=== PATIENT | female | born 1965 | race African-American/Black ===

== ENCOUNTER 2016-11-29 20:12 | Emergency (ER) | payer MEDICAID, OTHER ==
[~2016-11-29] VITALS: Ht 167.6 cm; Wt 82.0 kg
[~2016-11-29 20:12] MED LIST: HYDR-3927 PO; IBUP-1008 PO; LORA-250 PO; LORA1TAB PO; PENT400T29 PO; VIC PO
[2016-11-29] MEDS ORDERED: NITROGLYCERIN OINT 1GM/INCH UDPKT TD STA (22:16)
[2016-11-29] MEDS ORDERED: MORPHINE SULFATE 4 MG/ML CPJ (NOT FOR IM USE) IV STA (22:16)
[2016-11-29] MEDS ORDERED: ASPIRIN 325MG EC TABLET PO ONE (22:30)
[2016-11-29 22:49] LABS: BASOPHILS % 0.8 % (0.0-2.0); EOSINOPHILS % 2.1 % (0.0-5.0); HEMATOCRIT. 38.6 % (36.0-48.0); LYMPHOCYTES % 20.2 % (20.0-50.0); MEAN CORPUSCULAR HEMOGLOBIN 32.1 pg (28.0-32.0); MEAN CORPUSCULAR VOLUME 95.2 fL (81.0-99.0); MEAN PLATELET VOLUME 8.7 fl (7.4-10.4); MONOCYTES % 8.7 % (2.0-8.0); NEUTROPHILS % 68.2 % (40.0-76.0); PLATELET 256 x1000/uL (130-400); RED BLOOD CELL COUNT 4.05 mill/uL (4.2-5.4); RED CELL DISTRIBUTION WIDTH 13.1 % (11.6-14.6)
[2016-11-29 22:52] LABS: CHLORIDE 109 mEq/L (98-107)
[2016-11-29 23:01] LABS: CARBON DIOXIDE 27 mEq/L (21-32); TROPONIN I < 0.02 ng/mL (0.00-0.04)
[2016-11-30] MEDS ORDERED: ACETAMINOPHEN 325MG TABLET PO PRN (01:45)
[2016-11-30] MEDS ORDERED: ENOXAPARIN 40MG/0.4ML SYR SUBCUT SCH (01:45)
[2016-11-30] MEDS ORDERED: ONDANSETRON HCL 4MG/2ML VIAL IV PRN (01:45)
[2016-11-30] MEDS ORDERED: CLONIDINE 0.1MG TABLET PO PRN (01:45)
[2016-11-30] MEDS ORDERED: MORPHINE SULFATE 4 MG/ML CPJ (NOT FOR IM USE) IV PRN (02:15)
[2016-11-30 02:18] LABS: BASOPHILS % 0.6 % (0.0-2.0); EOSINOPHILS % 2.4 % (0.0-5.0); HEMATOCRIT. 37.1 % (36.0-48.0); HEMOGLOBIN. 12.5 g/dL (12.0-16.0); LYMPHOCYTES % 20.4 % (20.0-50.0); MEAN CORPUSCULAR VOLUME 94.7 fL (81.0-99.0); MEAN PLATELET VOLUME 8.7 fl (7.4-10.4); MONOCYTES % 9.3 % (2.0-8.0); NEUTROPHILS % 67.3 % (40.0-76.0); PLATELET 240 x1000/uL (130-400); RED BLOOD CELL COUNT 3.92 mill/uL (4.2-5.4)
[2016-11-30 02:22] LABS: CARBON DIOXIDE 26 mEq/L (21-32); CHLORIDE 107 mEq/L (98-107); CREATINE KINASE 66 IU/L (26-192); TROPONIN I < 0.02 ng/mL (0.00-0.04)
[2016-11-30 02:23] LABS: CREATINE KINASE MB FRACTION 1.3 ng/mL (0.5-3.6)
[2016-11-30 09:35] VITALS: BP 117/72
== END 2016-11-30 10:33 | disposition left against medical advice (07) ==
LOC: ER 21:22 → SUPCPDRO 11-30 01:38 → ENRESERV 11-30 10:04 → CANRESERV 11-30 10:04 → ER 11-30 10:33 → CANBEDREQ 11-30 11:02
DX: R07.9 Chest pain, unspecified (principal); E78.00 Pure hypercholesterolemia, unspecified; Z88.6 Allergy status to analgesic agent; Z88.0 Allergy status to penicillin; Z88.8 Allergy status to other drugs, medicaments and biological substances; Z86.73 Personal history of transient ischemic attack (TIA), and cerebral infarction without residual deficits
CPT/HCPCS: 36415; 71010; 73562; 73590; 80053; 82550; 82553; 83690; 83880; 84484; 85025; 93005; 96374; 99285; J2270; Z7610

== ENCOUNTER 2018-07-19 21:59 | Emergency (ER) | payer MEDICAID, OTHER ==
[~2018-07-19] VITALS: Ht 165.1 cm; Wt 68.0 kg
[2018-07-20] MEDS ORDERED: HYDROCODONE/ACETAMINOPHEN 10/325MG TABLET PO ONE (03:30)
[2018-07-20 03:54] LABS: CHLORIDE 105 mEq/L (98-107)
[2018-07-20 04:06] LABS: BASOPHILS % 0.5 % (0.0-2.0); EOSINOPHILS % 0.8 % (0.0-5.0); HEMATOCRIT. 39.2 % (36.0-48.0); HEMOGLOBIN. 13.3 g/dL (12.0-16.0); LYMPHOCYTES % 21.7 % (20.0-50.0); MEAN CORPUSCULAR HEMOGLOBIN 32.6 pg (28.0-32.0); MEAN CORPUSCULAR VOLUME 96.2 fL (81.0-99.0); MEAN PLATELET VOLUME 8.9 fl (7.4-10.4); MONOCYTES % 7.3 % (2.0-8.0); NEUTROPHILS % 69.7 % (40.0-76.0); PLATELET 227 x1000/uL (130-400); RED BLOOD CELL COUNT 4.07 mill/uL (4.2-5.4); RED CELL DISTRIBUTION WIDTH 13.6 % (11.6-14.6)
[2018-07-20 06:36] VITALS: BP 121/81
== END 2018-07-20 06:36 | disposition home or self-care (01) ==
LOC: ER 21:59
DX: G89.29 Other chronic pain (principal); M79.18 Myalgia, other site; Z86.73 Personal history of transient ischemic attack (TIA), and cerebral infarction without residual deficits; Z86.711 Personal history of pulmonary embolism
CPT/HCPCS: 36415; 93005; 99284

== ENCOUNTER 2019-09-19 15:22 | Inpatient (IN) | payer OTHER, MEDICAID ==
[~2019-09-19] VITALS: Ht 167.6 cm; Wt 82.6 kg
[2019-09-19] MEDS ORDERED: MORPHINE SULFATE 4 MG/ML CPJ (NOT FOR IM USE) IV STA (15:51)
[2019-09-19] MEDS ORDERED: ONDANSETRON HCL 4MG/2ML INJ IV STA (15:51)
[2019-09-19] MEDS ORDERED: SODIUM CHLORIDE 0.9% 1,000 ML IV ONE (15:51)
[2019-09-19 16:14] LABS: BASOPHILS % 0.4 % (0.0-2.0); EOSINOPHILS % 0.8 % (0.0-5.0); HEMATOCRIT. 41.7 % (36.0-48.0); HEMOGLOBIN. 14.3 g/dL (12.0-16.0); LYMPHOCYTES % 17.3 % (20.0-50.0); MEAN CORPUSCULAR VOLUME 96.2 fL (81.0-99.0); MEAN PLATELET VOLUME 8.7 fl (7.4-10.4); MONOCYTES % 8.3 % (2.0-8.0); NEUTROPHILS % 73.2 % (40.0-76.0); PLATELET 235 x1000/uL (130-400); RED BLOOD CELL COUNT 4.33 mill/uL (4.2-5.4)
[2019-09-19 16:16] LABS: CHLORIDE 107 mEq/L (98-107)
[2019-09-19 16:17] LABS: PROTHROMBIN TIME 10.7 sec (9.6-11.0)
[2019-09-19 16:20] LABS: ETHANOL BLOOD < 10 mg/dL
[2019-09-19] MEDS ORDERED: ACETAMINOPHEN 325MG TABLET PO ONE (16:30)
[2019-09-19 21:45] VITALS: BP 138/77
[2019-09-19 21:46] VITALS: BP_SYST 138; BP_SYST 144; BP_DIAS 77; BP_DIAS 78
[2019-09-19] MEDS ORDERED: IOHEXOL-300 100 ML BOTTLE ONE (22:17)
[2019-09-19] MEDS ORDERED: HYDR200T35 PO ×2 (22:31→22:38)
[2019-09-19] MEDS ORDERED: GABA-533 PO (22:46)
[2019-09-19] MEDS ORDERED: LIP40 MT (22:46)
[2019-09-19] MEDS ORDERED: BACL-141 PO (22:46)
[2019-09-19] MEDS ORDERED: TRAZ-251 MT (22:46)
[2019-09-19] MEDS ORDERED: DICY10CA88 PO (22:46)
[2019-09-19] MEDS ORDERED: RIVA20TA MT (22:46)
[2019-09-19] MEDS ORDERED: OMEP40CA12 MT (22:46)
[2019-09-20] VITALS: BP 106/49
[2019-09-20] MEDS: MORPHINE SULFATE 2 MG/ML CPJ (NOT FOR IM USE) IV PRN ×4 (01:19→20:29)
[2019-09-20] MEDS: SODIUM CHLORIDE 0.9% 1,000 ML IV SCH ×2 (01:20→17:38)
[2019-09-20 04:00] VITALS: BP 159/58
[2019-09-20 06:10] LABS: BASOPHILS % 0.6 % (0.0-2.0); EOSINOPHILS % 1.4 % (0.0-5.0); HEMATOCRIT. 37.3 % (36.0-48.0); HEMOGLOBIN. 12.8 g/dL (12.0-16.0); LYMPHOCYTES % 26.2 % (20.0-50.0); MEAN CORPUSCULAR HEMOGLOBIN 33.2 pg (28.0-32.0); MEAN CORPUSCULAR VOLUME 96.8 fL (81.0-99.0); MEAN PLATELET VOLUME 8.8 fl (7.4-10.4); MONOCYTES % 9.3 % (2.0-8.0); NEUTROPHILS % 62.5 % (40.0-76.0); PLATELET 213 x1000/uL (130-400); RED BLOOD CELL COUNT 3.86 mill/uL (4.2-5.4); RED CELL DISTRIBUTION WIDTH 12.6 % (11.6-14.6)
[2019-09-20 06:12] LABS: CHLORIDE 108 mEq/L (98-107)
[2019-09-20 08:00] VITALS: BP 106/79
[2019-09-20 08:00] LABS: CREATINE KINASE 54 IU/L (26-192)
[2019-09-20 08:01] LABS: CREATINE KINASE MB FRACTION < 1.0 ng/mL (0.5-3.6)
[2019-09-20 12:00] VITALS: BP 129/89
[2019-09-20] MEDS ORDERED: HYDROCODONE/ACETAMINOPHEN 5/325MG TABLET PO PRN (13:30)
[2019-09-20] MEDS: RIVAROXABAN 20 MG TABLET PO SCH (14:05)
[2019-09-20] MEDS: HYDROXYCHLOROQUINE SULFATE 200MG TABLET PO SCH (14:05)
[2019-09-20] MEDS: OMEPRAZOLE 20MG CAPSULE EXTENDED RELEASE PO SCH (14:06)
[2019-09-20] MEDS: DICYCLOMINE HCL 10MG CAPSULE PO SCH (15:55)
[2019-09-20 16:00] VITALS: BP 137/80
[2019-09-20 16:35] LABS: CREATINE KINASE 68 IU/L (26-192)
[2019-09-20 16:36] LABS: CREATINE KINASE MB FRACTION < 1.0 ng/mL (0.5-3.6)
[2019-09-20] MEDS: BACLOFEN 10MG TABLET PO SCH (17:31)
[2019-09-20] MEDS: GABAPENTIN 400MG CAPSULE PO SCH (17:31)
[2019-09-20] MEDS: PENTOXIFYLLINE 400MG TABLET PO SCH (17:31)
[2019-09-20 20:00] VITALS: BP 114/64
[2019-09-20] MEDS: ATORVASTATIN CALCIUM 40MG TABLET PO SCH (20:28)
[2019-09-20] MEDS ORDERED: TRAZODONE HCL 50MG TABLET PO SCH (21:00)
[2019-09-20] MEDS: LORAZEPAM 1MG TABLET PO PRN (22:33)
[2019-09-21] VITALS (8 sets, daily range): BP systolic 98–136; BP diastolic 49–70
[2019-09-21 05:30] LABS: CHLORIDE 109 mEq/L (98-107)
[2019-09-21 05:40] LABS: CREATINE KINASE 63 IU/L (26-192); T4 FREE 1.14 ng/dL (0.76-1.46)
[2019-09-21] MEDS: OMEPRAZOLE 20MG CAPSULE EXTENDED RELEASE PO SCH (05:56)
[2019-09-21 06:49] LABS: BASOPHILS % 0.6 % (0.0-2.0); HEMATOCRIT. 39.4 % (36.0-48.0); HEMOGLOBIN. 13.4 g/dL (12.0-16.0); MEAN CORPUSCULAR HEMOGLOBIN 33.1 pg (28.0-32.0); MEAN CORPUSCULAR VOLUME 97.1 fL (81.0-99.0); MEAN PLATELET VOLUME 9.2 fl (7.4-10.4); NEUTROPHILS % 63.4 % (40.0-76.0); PLATELET 197 x1000/uL (130-400); RED BLOOD CELL COUNT 4.05 mill/uL (4.2-5.4); RED CELL DISTRIBUTION WIDTH 12.7 % (11.6-14.6)
[2019-09-21] MEDS: PENTOXIFYLLINE 400MG TABLET PO SCH ×3 (09:08→17:12)
[2019-09-21] MEDS: BACLOFEN 10MG TABLET PO SCH ×2 (09:08→17:11)
[2019-09-21] MEDS: GABAPENTIN 400MG CAPSULE PO SCH (09:08)
[2019-09-21] MEDS: RIVAROXABAN 20 MG TABLET PO SCH (09:08)
[2019-09-21] MEDS: HYDROXYCHLOROQUINE SULFATE 200MG TABLET PO SCH (09:08)
[2019-09-21] MEDS: DICYCLOMINE HCL 10MG CAPSULE PO SCH (09:08)
[2019-09-21] MEDS: SODIUM CHLORIDE 0.9% 1,000 ML IV SCH (12:36)
[2019-09-21] MEDS: MORPHINE SULFATE 2 MG/ML CPJ (NOT FOR IM USE) IV PRN ×2 (13:07→23:21)
[2019-09-21] MEDS ORDERED: CELECOXIB 200MG CAPSULE PO SCH (17:00)
[2019-09-21] MEDS: DULOXETINE HCL 60MG DR CAPSULE PO SCH (17:11)
[2019-09-21] MEDS: DOCUSATE SODIUM 250MG CAPSULE PO SCH (19:08)
[2019-09-21] MEDS ORDERED: MAGNESIUM CITRATE 300ML SOLUTION PO SCH (20:00)
[2019-09-21] MEDS: PREGABALIN 75MG CAPSULE PO SCH (20:20)
[2019-09-21] MEDS: ATORVASTATIN CALCIUM 40MG TABLET PO SCH (20:20)
[2019-09-21] MEDS ORDERED: BISACODYL 5MG TABLET PO SCH (21:00)
[2019-09-22 04:00] VITALS: BP 107/60
[2019-09-22] MEDS: SODIUM CHLORIDE 0.9% 1,000 ML IV SCH (04:24)
[2019-09-22] MEDS: CELECOXIB 200MG CAPSULE PO SCH ×2 (06:36→18:11)
[2019-09-22] MEDS: OMEPRAZOLE 20MG CAPSULE EXTENDED RELEASE PO SCH (06:36)
[2019-09-22 08:00] VITALS: BP 115/54
[2019-09-22 08:12] LABS: BASOPHILS % 0.5 % (0.0-2.0); EOSINOPHILS % 1.2 % (0.0-5.0); HEMATOCRIT. 37.2 % (36.0-48.0); HEMOGLOBIN. 12.9 g/dL (12.0-16.0); LYMPHOCYTES % 18.7 % (20.0-50.0); MEAN CORPUSCULAR HEMOGLOBIN 33.6 pg (28.0-32.0); MEAN CORPUSCULAR VOLUME 97.1 fL (81.0-99.0); MONOCYTES % 6.3 % (2.0-8.0); NEUTROPHILS % 73.3 % (40.0-76.0); PLATELET 196 x1000/uL (130-400); RED BLOOD CELL COUNT 3.83 mill/uL (4.2-5.4); RED CELL DISTRIBUTION WIDTH 12.3 % (11.6-14.6)
[2019-09-22 08:33] LABS: CHLORIDE 108 mEq/L (98-107)
[2019-09-22] MEDS: BACLOFEN 10MG TABLET PO SCH ×2 (10:19→18:12)
[2019-09-22] MEDS: PREGABALIN 75MG CAPSULE PO SCH (10:19)
[2019-09-22] MEDS: DULOXETINE HCL 60MG DR CAPSULE PO SCH (10:19)
[2019-09-22] MEDS: DOCUSATE SODIUM 250MG CAPSULE PO SCH (10:19)
[2019-09-22] MEDS: HYDROXYCHLOROQUINE SULFATE 200MG TABLET PO SCH (10:19)
[2019-09-22] MEDS: PENTOXIFYLLINE 400MG TABLET PO SCH ×3 (10:19→18:12)
[2019-09-22] MEDS: DICYCLOMINE HCL 10MG CAPSULE PO SCH (10:19)
[2019-09-22] MEDS: MORPHINE SULFATE 2 MG/ML CPJ (NOT FOR IM USE) IV PRN ×2 (10:27→20:42)
[2019-09-22 12:00] VITALS: BP 125/60
[2019-09-22 16:00] VITALS: BP 131/60
[2019-09-22] MEDS ORDERED: BISACODYL 10MG SUPP PR NR (16:30)
[2019-09-22] MEDS ORDERED: POLYETHYLENE GLYCOL 3350 (17GM) 1 DOSE PACK PO SCH (16:45)
[2019-09-22] MEDS ORDERED: RIVAROXABAN 20 MG TABLET PO SCH (17:00)
[2019-09-22] MEDS ORDERED: MAGNESIUM CITRATE 300ML SOLUTION PO NR (18:00)
[2019-09-22 20:52] VITALS: BP 116/66
[2019-09-22] MEDS: LORAZEPAM 1MG TABLET PO PRN (22:47)
[2019-09-23] MEDS ORDERED: FAMOTIDINE 20MG TABLET PO SCH (06:45)
[2019-09-23 13:06] LABS: ANTI-DNA DOUBLE STRANDED QUANT < 1 IU/mL (0-9); ANTI-JO 1 ABS <0.2 AI (0.0-0.9); RNP ANTIBODY < 0.2 AI (0.0-0.9); SMITH ANTIBODY < 0.2 AI (0.0-0.9)
[2019-09-25 09:09] LABS: ANGIOTENSION CONVERTING ENZYME 60 U/L (14-82)
[2019-09-25 13:06] LABS: ALDOLASE 3.6 U/L (3.3-10.3); ANTI-MYELOPEROXIDASE AB < 9.0 U/mL (0.0-9.0); ANTI-PROTEINASE 3 ABS < 3.5 U/mL (0.0-3.5); ATYPICAL P-ANCA <1:20 titer (Neg:<1:20); CYTOPLASMIC C-ANCA <1:20 titer (Neg:<1:20); PERINUCLEAR P-ANCA <1:20 titer (Neg:<1:20)
[2019-09-25 17:10] LABS: ANA IFA Negative (.)
== END 2019-09-22 22:15 | disposition short-term general hospital (02) | DRG 346 ==
LOC: ER 15:22 → MICUSO 16:56 → 5WST 22:24
PROVIDERS: ADMIT Internal Medicine; ATTEND Internal Medicine
DX: M32.9 Systemic lupus erythematosus, unspecified (principal); M35.1 Other overlap syndromes; M06.9 Rheumatoid arthritis, unspecified; E78.00 Pure hypercholesterolemia, unspecified; E78.5 Hyperlipidemia, unspecified; I10 Essential (primary) hypertension; G89.29 Other chronic pain; F41.8 Other specified anxiety disorders; K59.09 Other constipation; M19.90 Unspecified osteoarthritis, unspecified site; Z79.01 Long term (current) use of anticoagulants; Z88.0 Allergy status to penicillin; Z88.8 Allergy status to other drugs, medicaments and biological substances; Z86.711 Personal history of pulmonary embolism; Z79.899 Other long term (current) drug therapy; Z86.73 Personal history of transient ischemic attack (TIA), and cerebral infarction without residual deficits
CPT/HCPCS: 36415; 71045; 73502; 74177; 76830; 76856; 80048; 80053; 80320; 82085; 82164; 82550; 82553; 83520; 83605; 83880; 84439; 84484; 85025; 86160; 86225; 86235; 86256; 86431; 86592; 86780; 93005; 99285; J2270; J2405; J7030; Q9967; G0480